=== PATIENT | male | born 1965 | race Caucasian/White ===

== ENCOUNTER → 2018-04-29 16:04 | Outpatient (CLI) | payer MEDICAID, SELFPAY | PROVIDERS: Family Provider Family Medicine; PCP Family Medicine; Referring Provider Otolaryngology Otolaryngology/Facial Plastic Surgery; Visit Provider Otolaryngology Otolaryngology/Facial Plastic Surgery | DX: J02.9 Acute pharyngitis, unspecified (principal) | CPT/HCPCS: 87070; 87077 ==

== ENCOUNTER → 2018-12-09 11:05 | Outpatient (CLI) | payer MEDICAID, SELFPAY ==
[2018-12-09 09:49] VITALS: BMI 27.6
[2018-12-09 11:36] LABS: Prothrombin Time (Protime)PT. 13.1 SECONDS (11.7-14.9)
[2018-12-09 11:37] LABS: Hematocrit 48.3 % (40-54); Hemoglobin 16.4 g/dl (13.0-16.5); Mean Corpuscular Hgb 30.5 pg (27.0-32.0); Mean Corpuscular Volume 89.8 fL (80-94); Mean Platelet Vol. 11.4 fl (6.2-12.0); Partial Thromboplast Time 29.3 Seconds (24.1-36.2); Platelet Count 198 K/mm3 (150-450); RBC Distribution Width CV 13.4 % (11.6-14.6); RBC Distribution Width SD 43.9 fl (35.1-43.9); Red Blood Count 5.38 M/mm3 (4.6-6.2); White Blood Count 8.4 K/mm3 (4.4-11.0)
[2018-12-09 11:40] LABS: Scan Indicated on CBC? Y/N NO
[2018-12-09 11:58] LABS: AST(SGOT) 23 U/L (15-37); Alanine Aminotransfer ALT/SGPT 30 U/L (16-61); Alkaline Phosphatase 91 U/L (45-117); Anion Gap 9 (5-15); BUN 14 mg/dL (7-18); BUN/Creat Ratio 13.9 RATIO (10-20); Bilirubin, Direct 0.08 mg/dL (0.00-0.30); Calcium,Total 9.2 mg/dL (8.5-10.1); Chloride 103 mmol/L (98-107); Cholesterol 149 mg/dL (200); Creatinine, Serum 1.01 mg/dL (0.70-1.30); EST Glomerular Filtration Rate 82 mL/min (>60); Est Glom Filt Rate - Afr Amer 99 mL/min (>60); Globulin 4.2 g/dL (2.2-4.2); Glucose 99 mg/dL (74-106); High Density Lipoprotein 34 mg/dL; Potassium 3.9 mmol/L (3.5-5.1); Protein, Total 8.2 g/dL (6.4-8.2); Sodium Level 138 mmol/L (136-145); Triglycerides 167 mg/dL; Very Low Density Lipoprotein 33 mg/dL (5-40)
== END ==
PROVIDERS: Family Provider Physician Assistant; PCP Physician Assistant; Referring Provider Internal Medicine Cardiovascular Disease; Visit Provider Internal Medicine Cardiovascular Disease
DX: R07.9 Chest pain, unspecified (principal); R94.39 Abnormal result of other cardiovascular function study; E78.5 Hyperlipidemia, unspecified; E78.1 Pure hyperglyceridemia
CPT/HCPCS: 36415; 80048; 80061; 80076; 85027; 85610; 85730

== ENCOUNTER → 2018-12-10 | Outpatient (CLI) | payer MEDICAID, SELFPAY ==
[2018-12-09 09:49] VITALS: BMI 27.6
--- NOTE | 2018-12-10 11:00 | ECHOCS_ITS ---
Reason For Study: CHEST PAIN Procedure This was a 2D Doppler, Color Flow transthoracic echocardiogram. The study was technically difficult. Contrast injection was performed. Exam performed in department. Left Ventricle Mildly dilated left ventricle. The estimated ejection fraction is 65 %. Stage 1 diastolic dysfunction. No regional wall motion abnormalities noted. Right Ventricle Mildly dilated right ventricle. Normal systolic function. Atria Normal left atrium. Normal right atrium. Normal atrial septum. Mitral Valve The mitral valve is structurally normal. No prolapse or stenosis seen. Tricuspid Valve Normal tricuspid valve. Trivial tricuspid valve insufficiency. Right ventricular systolic pressure estimated to be 29 mmHg. Aortic Valve Normal aortic valve. Trisinus/trileaflet aortic valve. Pulmonic Valve Normal pulmonic valve. Great Vessels Normal aortic root. Normal arch. Normal inferior vena cava. Inferior vena cava collapse with sniff. Pericardium/Pleural No pericardial effusion. Medication 22 gauge I.V. with prn adaptor inserted into right arm. Diluted definity 2.0ml given slow IV push to enhance endocardial definition. MMode/2D Measurements & Calculations LVIDd: 5.0 cm IVSd: 0.82 cm Ao root diam: 3.1 cm LVIDs: 3.5 cm LVPWd: 1.0 cm RVDd: 4.0 cm FS: 31.2 % LAV(MOD-bp): 48.7 ml LA A4 area: 16.8 cm2 LA dimension(2D): 2.9 cm LAV(MOD-bp) Indexed: 20.8 ml/m2 LAV(MOD-sp2): 48.5 ml LAV(MOD-sp4): 47.1 ml RA A4 area: 15.8 cm2 Time Measurements MV dec time: 0.17 sec Doppler Measurements & Calculations MV E max jovanny: 53.3 cm/sec Lat Peak E' Jovanny: 11.2 cm/sec Med Peak E' Jovanny: 9.4 cm/sec MV A max jovanny: 59.3 cm/sec E/E' lat: 4.8 E/E' med: 5.7 MV E/A: 0.90 Ao V2 max: 112.9 cm/sec LV V1 max: 94.5 cm/sec PA V2 max: 86.8 cm/sec Ao max P.1 mmHg LV V1 max P.6 mmHg TR max jovanny: 245.4 cm/sec TR max P.1 mmHg Interpretation Summary Mildly dilated left ventricle. The estimated ejection fraction is 65 %. Stage 1 diastolic dysfunction. Mildly dilated right ventricle. Trivial tricuspid valve insufficiency. Right ventricular systolic pressure estimated to be 29 mmHg. The study was technically limited. Contrast injection was performed. There is no comparison study available. Ordering Physician: Slim Elias Referring Physician: Ashu Pastrana Performed By: Hannah Gates, RDCS, RVT
== END | disposition home or self-care (01) ==
LOC: CVS 10:24
PROVIDERS: Family Provider Physician Assistant; PCP Physician Assistant; Referring Provider Internal Medicine Cardiovascular Disease; Visit Provider Internal Medicine Cardiovascular Disease
DX: R07.9 Chest pain, unspecified (principal); R94.39 Abnormal result of other cardiovascular function study
CPT/HCPCS: 93306; Q9957; A4216; C8929

== ENCOUNTER 2018-12-17 07:43 | Day surgery (SDC) | payer MEDICAID, SELFPAY ==
[2018-12-09 09:49] VITALS: BMI 27.6
--- NOTE | 2018-12-09 10:24 | HP_ITS ---
HPI HPI History of Present Illness Surgical H&P: Yes Details: Mr. Ibarra is a very pleasant 53-year-old current smoker approximately [id number] smoking history, drinks about 6 cans of beer per week, nondiabetic, no previous known history of coronary artery disease who apparently noted new onset substernal chest pain, and underwent a treadmill/EKG at the [facility] on 12/02/2018. Apparently the patient went 7 METS, had an excessive heart rate response to exercise, had poor exercise tolerance and had atypical chest discomfort and frequent PACs. He apparently has never had a heart catheterization. In addition he has significant dizziness and lightheadedness at the end of his treadmill test. His most recent lipids dated 11/05/2018 showed triglycerides of 337, HDL 28 and LDL of 95. He is currently on Lipitor. He also has a family history of early coronary artery disease and that his brother suddenly in his sleep, myocardial infarction at age 31. On further history the patient states that approximately 1 month ago he developed chest tightness and pressure with associated palpitations, short and dyspnea on exertion. He had no associated nausea or vomiting. On some occasions, his chest pain actually improved with ambulation. He is not on baby aspirin. In addition the patient complains of excessive snoring, wakes himself up with his own snoring, wakes up tired on a daily basis, and his daytime somnolence during the day. In our office today's blood pressure was 102/60, pulse is 72 and regular. Physical exam demonstrates clear lungs bilaterally, regular rate and rhythm,. EKG dated 12/02/2018 shows normal sinus rhythm with PACs, normal axis, normal intervals, no evidence of previous myocardial infarction. Lipids are as above. Intake Vital Signs 12/09/18 Height 6 ft 4 in 12/09/18 Weight: 227 lb 12/09/18 Body Mass Index (BMI) 27.6 12/09/18 Blood Pressure 102/60 12/09/18 Blood Pressure Location Lt brachial 12/09/18 Blood Pressure Position Sitting 12/09/18 Respiratory Rate 20 H 12/09/18 Pulse Rate 72 12/09/18 Pulse Source Auscultation Intake Visit Reasons: ABN STRESS TEST (CHIDI PASTRANA) Overedger Required: No Accompanied by: Is patient in pain?: No Allergies No Known Allergies Allergy (Verified 03/24/17 16:29) Medications Azelastine HCl [Astelin] 1 spray NASAL BID 03/24/17 [History Confirmed 12/09/18] albuterol sulfate 90 mcg/actuation breath activated powder inhaler 2 inh INHALATION Q6H PRN ea 12/08/18 [History Confirmed 12/09/18] atorvastatin 10 mg tablet 10 mg PO QHS tab 12/08/18 [History Confirmed 12/09/18] guaifenesin ER 600 mg tablet, extended release 12 hr 600 mg PO Q12H PRN 12/08/18 [History Confirmed 12/09/18] ipratropium bromide 0.03 % nasal spray 2 spray INTRANASAL BID 12/08/18 [History Confirmed 12/09/18] mometasone-formoterol HFA 100 mcg-5 mcg/actuation aerosol inhaler 2 puff INHALATION BID 12/08/18 [History Confirmed 12/09/18] montelukast 10 mg tablet 10 mg PO QPM 12/08/18 [History Confirmed 12/09/18] sodium chloride 0.65 % nasal spray aerosol 2 spray INTRANASAL Q2H PRN 12/08/18 [History Confirmed 12/09/18] triamcinolone acetonide 55 mcg nasal spray aerosol 2 spray INTRANASAL DAILY 12/08/18 [History Confirmed 12/09/18] aspirin 81 mg tablet,delayed release 81 mg PO DAILY #30 tab 12/09/18 [Rx Confirmed 12/09/18] clopidogrel 75 mg tablet 75 mg PO DAILY #30 tab 12/09/18 [Rx Confirmed 12/09/18] metoprolol tartrate 25 mg tablet 12.5 mg PO BID #30 tab 12/09/18 [Rx Confirmed 12/09/18] FOR[facility]LY [facility] Medical History Abnormal stress electrocardiogram test (Acute) Hypertriglyceridemia (Acute) Hyperlipidemia (Chronic) Chronic sinusitis (Chronic) Snoring (Chronic) Chest pain (Acute) Allergic rhinitis (Chronic) Bilateral inguinal hernia (Chronic) History of wisdom tooth extraction (Chronic) Surgical History History of appendectomy (Chronic) History of hernia repair (Chronic) Family History Mother Alzheimers disease Daughter Autism ADHD Developmental disability Social History Smoking Status: Current every day smoker tobacco type: cigarettes ROS Const Const: Positive for other (Referred by Chidi Pastrana, abn stress test); negative for fatigue, weakness, body ache, fever(s), headache(s), chills, frequent falls, night sweats, daytime sleepiness, difficulty sleeping, excessive sweating, weight gain, weight loss, increased appetite, poor appetite or anorexia Eyes Eyes: Negative for blind spots, loss of peripheral vision, transient loss of vision, blurry vision, change in vision, double vision, floaters, tunnel vision or other ENT ENT: Negative for headache(s), dizziness, hearing loss, tinnitus, Nosebleed/epistaxis, balance problems, post nasal drip, lip swelling, tongue swelling, bleeding gums, hoarseness, neck pain, dry mouth or other Cardio Chest Pain: Yes (Some tightness, this am and once yesterday) Frequency: other (several times a week) Character: tightness Onset: at rest Location: mid sternal Duration: minutes (4 or 5 minutes) Exacerbation: other (stress) Relieving: rest Recurrence: other (spontaneously) Palpitations: Yes (Yesterday felt heart racing for 5 minutes or so) feels like its: fast Edema: None Muscle aches with walking: None Resp Respiratory: Positive for SOB with activity (has chronic rhinitis, productive yellow sputum) and Cough; negative for SOB at rest, SOB orthopnea\SOB lying down, Coughing up blood/hemoptysis, chest congestion, pain on inspiration, snoring, stridor, wheezing, crackles, paroxysmal nocturnal dyspnea or other GI GI: Negative nausea, vomiting, heartburn, constipation, belching, bloating, cramping, vomiting blood/hematemesis, bright, red blood in stools, black,tarry stools, loose stools, Difficulty Swallowing or other : Negative for hematuria, frequent nighttime urination/ nocturia, erectile dysfunction or abnormal vaginal bleeding Musc Musc: Negative for muscle aches/ myalgia, muscle weakness, joint pain or balance problems Skin Skin: Negative redness, non-healing lesions, rash, unusual bruising, skin ulcer, wounds, jaundice or other Neuro Neuro: Negative for dizziness, lightheadedness, near syncope, syncope, orthostatic symptoms, frequent falls, headache(s), weakness, confusion, memory loss, restless legs, blurry vision, double vision, vertigo, seizures, lack of coordination or other Phillip Hematologic/Lymphatic: Negative for easy bleeding, easy bruising, enlarged lymph nodes or other Endo Endo: Negative for fatigue, cold intolerance, heat intolerance, excessive sweating, flushing, increased thirst/drinking, increased hunger, hair loss, hair growth or other Psych Psych: Negative for anxiety, depression, thoughts of harming anyone, thoughts of harming yourself, visual hallucinations, panic attacks or audible hallucinations Allergy Allergy/Immunology: Negative for throat swelling, Negative for tongue swelling, Negative for hives, Negative for rash, Negative for lip swelling Cardiology Exam Const Appearance: cooperative, healthy appearing and no acute distress Nutritional Appearance: well nourished Orientation: alert, oriented x3 and oriented to person Head Head: normal to inspection, normocephalic and atraumatic Nose: external nose normal Face and Sinus: face symmetric Mouth: oral mucosae normal Eyes General: appearance normal, both eyes and all related structures Eyelids: eyelids normal Conjunctivae: conjunctivae normal Pupils: PERRL and normal by confrontation EOM: EOM intact bilaterally Neck Neck: normal visual inspection and full ROM Carotids: normal carotid upstroke Chest Chest inspection: normal inspection of the chest Auscultation: Bilateral: Clear to Auscultation Cardio Palpation: normal PMI Rate: regular rate Rhythm: regular rhythm Heart sounds: S1 normal and S2 normal GI GI: normal to inspection, no hepatosplenomegaly and bowel sounds present Neuro General: alert, awake, oriented x3, CN's II-XI intact bilaterally and moves all extremities Skin Skin: no rashes or lesions noted Extremities Pulses: Normal: Right Femoral Pulse, Left Femoral Pulse, Right Dorsalis Pedis Pulse, Left Dorsalis Pedis Pulse, Right Posterior Tibial Pulse, Left Posterior Tibial Pulse, Right Radial Pulse, Left Radial Pulse Lower Extremity Edema: None: Bilateral Psych Psychological: normal affect Assessment & Plan 1. Abnormal stress electrocardiogram test R94.39 Plan 1. Abnormal stress test: The patient has had chest pain on and off for the past month or so, is a longtime smoker, and as significant important family history of his younger brother who of a myocardial infarction in his sleep at age 31. I am concerned that although the patient's chest pain has both typical and atypical features, he had an abnormal stress test with exertional chest pain, and poor exercise capacity for age. I recommended that the patient undergo a left heart catheterization to confirm/deny the presence of significant coronary occlusive disease. If he has no significant disease, he will then be referred for exercise therapy and weight loss therapy. In anticipation of his catheterization, I have explained the risks/benefits of the procedure with him specific attention to lack of on-site surgical back-up, and the patient is agreed to proceed. In addition we will start him on baby aspirin 81 mg p.o. daily, Plavix, 75 mg a day, and Lopressor 12.5 mg p.o. twice daily for heart rate control. I strongly encouraged the patient discontinue all alcohol and tobacco products to assist with his overall cardiovascular health. In addition I recommended he undergo a 2D echo with Doppler to evaluate his LV function, pulmonary pressures, and valvular status. Orders Orders: Echo Complete Today Left Heart Cath 12/17/18 Basic Metabolic Profile (BMP) Today Partial Thromboplast Time Today Prothrombin Time w/INR Today CBC-Complete Blood Cnt No Diff Today Chest PA and Lateral Today Echo Complete Today 2. Excessive daytime sleepiness G47.19 Plan 2. Excessive daytime somnolence: The patient has signs and symptoms of possible undiagnosed obstructive sleep apnea. I recommended he undergo a sleep study to evaluate this. If this is abnormal, he will be referred to Dr. Dueñas or Dr. Redman for CPAP or BiPAP management. 3. Hypertriglyceridemia: The patient has evidence of hyperglyceridemia and low HDL which may be a complication of ongoing tobacco use and ongoing alcohol use with beer. We will continue Lipitor therapy and repeat his lipid profile in 6 weeks time. 4. Return office in 6 months. This note was generated using a voice recognition system and there may be incorrect words, spelling or punctuation that were not noted when reviewing the office note prior to saving. Orders Orders: Polysomnography Today 3. Hyperlipidemia E78.5 Orders Orders: Lipid Profile Today Liver Profile Today Plan Detail Other Orders Orders: Echo Complete Today R07.9 Left Heart Cath 12/17/18 R07.9 Basic Metabolic Profile (BMP) Today R07.9 Lipid Profile Today E78.1 Partial Thromboplast Time Today R07.9 Prothrombin Time w/INR Today R07.9 CBC-Complete Blood Cnt No Diff Today R07.9 Liver Profile Today E78.1 Chest PA and Lateral Today R07.9 Polysomnography Today R06.83 Other Medications New: albuterol sulfate 90 mcg/actuation 2 inhalations inhalation Q6H PRN ipratropium bromide 2 sprays intranasal BID montelukast (Singulair) 10 mg PO QPM triamcinolone acetonide (Nasacort) 2 sprays intranasal DAILY guaifenesin ER (Mucinex) 600 mg PO Q12H PRN mometasone-formoterol 100-5 mcg/actuation (Dulera) 2 puffs inhalation BID sodium chloride 0.65% (Saline Nasal Mist) 2 sprays intranasal Q2H PRN aspirin (Adult Aspirin Regimen) 81 mg PO DAILY 30 tabs 11RF clopidogrel (Plavix) 75 mg PO DAILY 30 tabs 3RF metoprolol tartrate 12.5 mg (1/2 x 25 mg) PO BID 30 tabs 11RF Follow Up +6M (Curt) Coding Level of Care Code Off vis,new,level 4 Diagnoses Abnormal stress electrocardiogram test R94.39 Excessive daytime sleepiness G47.19 Hyperlipidemia E78.5 Coding Level of Care Code Off vis,new,level 4 Diagnoses Abnormal stress electrocardiogram test R94.39 Excessive daytime sleepiness G47.19 Hyperlipidemia E78.5 12/09/18 1024 <Electronically signed by Slim Elias MD> Date Slim Elias MD
--- NOTE | 2018-12-09 10:53 | RAD_ITS ---
STUDY: X-RAY CHEST REASON FOR EXAM: Male, 53 years old. Chest pain TECHNIQUE: PA and lateral views of the chest. COMPARISON: None. FINDINGS: The lungs are clear and expanded. There is no demonstrated pleural abnormality. Normal size heart. Normal mediastinum and sloan. Normal visualized pulmonary arteries. Normal visualized aortic arch and descending thoracic aorta. Normal visualized thoracic spine. Normal visualized ribs, clavicles, and shoulders. There is no demonstrated abnormality of the visualized soft tissue structures of the upper abdomen. RAD/Chest PA and Lateral IMPRESSION: Normal x-ray examination of the chest. Electronically Signed: Nate Lee DO at 12:45 EDT Tel , Service support ,
--- NOTE | 2018-12-17 10:29 | CL.D_ITS ---
Patient Name: ALEXIS TEJADA Study Date: 12/17/2018 Performing: Slim Elias MD Ht: 75.98 inches 193 cm : 1965 Wt: 229.28 lbs 104 kg Age: 53 Gender: male BSA: 2.35 PROCEDURE(S) PERFORMED CI93-JBX/COR/LV CLINICAL PROFILE AND INDICATIONS Indications: New Onset Angina <= 2 months, Suspected CAD Heart Failure: None Stress/Imaging Date: 12/02/2018 Angina Classification Anginal Classification w/in 2 Weeks: CCS III Comorbidities/Risk Factors: Current/Recent Smoker (< 1year) Hypertension Dyslipidemia CONCLUSIONS Non obstructive coronary arteries Normal LV size, wall motion,and systolic function RECOMMENDATIONS Management as per referring [employer] Attendant D/c plavix, cont baby asa. D/c tobacco. DESCRIPTION OF PROCEDURE The patient arrived to the procedure lab. The risks and benefits of the procedure as well as a full d escription of our services here and current unavailability of surgical backup were fully explained to the patient and/or their significant other prior to the catheterization. The Timeout was completed, verifying the correct patient and procedure. The patient's procedural site was prepped and draped in the usual fashion. Local anesthetic was given subcutaneously to right groin region with Lidocaine 2%. Using a modified Seldinger technique, arterial access was obtained via the right femoral artery, a 4 Fr sheath was inserted Left Coronary Artery selective angiography was performed in multiple views us ing a 4 Fr. JL5 catheter. Right Coronary Artery selective angiography was then performed in multiple views using a 4 Fr. 3DRC catheter. Left Ventriculography was performed in KERN projection using a 4 Fr . Pigtail catheter. LV to AO pullback pressures were then recorded.The arterial sheath was pulled and manual compression applied until hemostasis is achieved. CORONARY ANGIOGRAPHY DOMINANCE: Right Dominant LEFT HEART ASSESSMENT Left Ventricular Ejection Fraction: by LV Gram 65 % Normal LV wall motion Normal Left Ventricular systolic function LEFT MAIN: Angiographically normal LEFT ANTERIOR DESCENDING ARTERY: Mild luminal irregularities less than 30% CIRCUMFLEX ARTERY: Angiographically normal RIGHT CORONARY ARTERY: Angiographically normal COMPLICATIONS No Complications PROCEDURE MEDICATIONS Oxygen: 2 L/min via nasal cannula IV Bolus: .9 NaCl 200 ml total 12/17/2018 10:24:22 SUMMARY OF HEMODYNAMIC DATA Time AIR REST ECG 08:33:50 ECG 09:45:33 AO 97/65 (80) SA 10:14:17 LV 108/-16, 16 10:19:06 LV 110/-13, 15 10:19:13 LVp 110/-16, 11 10:19:17 AOp 114/65 (86) 10:19:22 Signed By Slim Elias MD On 12/17/2018 10:28:19 Slim Elias MD
== END 2018-12-17 14:45 | disposition home or self-care (01) ==
LOC: CLSP 07:44
PROVIDERS: Family Provider Physician Assistant; PCP Physician Assistant; Referring Provider Internal Medicine Cardiovascular Disease; Visit Provider Internal Medicine Cardiovascular Disease
DX: I20.9 Angina pectoris, unspecified (principal); R94.39 Abnormal result of other cardiovascular function study; G47.10 Hypersomnia, unspecified; E78.1 Pure hyperglyceridemia; Z79.899 Other long term (current) drug therapy; Z79.82 Long term (current) use of aspirin; J30.9 Allergic rhinitis, unspecified; J32.9 Chronic sinusitis, unspecified; E78.5 Hyperlipidemia, unspecified; F17.210 Nicotine dependence, cigarettes, uncomplicated
CPT/HCPCS: 71046; 93458; J7040; C1769; C1894; Q9967

== ENCOUNTER 2020-04-03 09:13 | Emergency (ER) | payer MEDICAID, SELFPAY ==
[2020-01-07 10:41] VITALS: BMI 28.3
[2020-04-03 09:14] VITALS: BP 145/66; PULSE 116; RESP 18; TEMP 36.6; BMI 28.8
--- NOTE | 2020-04-03 09:38 | ED.VISSUMM ---
- ER Visit Summary Date of Service: 04/03/20 Chief Complaint: Sinus infection History of Present Illness: The patient is a 55 M who presents with a sinus infection that is been constant for the past 4 months. Patient states he was on a course of Augmentin for 20 days but finished that 3 months ago. Patient states he has been taking prednisone for the past 4 days. Patient states he had some of this leftover and started taking it on his own. Patient states this has not helped. Patient states he woke up today and was having persistent rhinorrhea with a cough. Patient also admits to some nausea and diarrhea today. Patient denies any fevers or chills. Patient does admit to a sore throat. Physical Examination: Vital signs are stable except for mild tachycardia of 116. Patient is afebrile. Patient is in no acute distress. Nasal mucosa is congested, worse on the left. Oral mucosa is pink and moist. Oropharynx is clear. Neck is supple. Trachea is midline. There is no JVD or lymphadenopathy. There is tenderness over the frontal and maxillary sinuses bilaterally. Heart was regular rate and rhythm. Lungs are clear and equal bilaterally. Abdomen is soft and nontender. Cranial nerves II through XII are intact. There are no focal motor or sensory deficits. Emergency Department Course and Treatment: Patient was given a dose of doxycycline here. Patient was given prescriptions for doxycycline and Flonase. Patient was instructed to stop using the prednisone. Patient was instructed to follow-up with his primary care physician in 5 to 7 days. Patient was also advised he may need to see an ear nose and throat physician. Patient understood and was agreeable with the plan. All questions were answered. Disposition: Discharge home Impression: Acute sinusitis This note was generated with [employer] dictation software. It may contain incorrect words, spelling, and punctuation that were not noted in review of the chart prior to signing ED Disposition - Plan for ED Patient: Disposition: Home or Assisted Living Diagnosis: Acute sinusitis Instructions: ED Sinusitis Antibiotic Treatment Prescriptions: Doxycycline 100 mg PO BID #20 cap Prescription Printed Fluticasone 0.05% [Flonase Nasal Swiss] 1 spray NASAL DAILY #1 nasal.sry Prescription Printed Referrals: Niraj Pastrana PA [Primary Care Provider] - 5-7 Days
[2020-04-03] MEDS: Doxycycline 100 MG CAPSULE PO (09:43)
== END 2020-04-03 10:18 | disposition home or self-care (01) ==
PROVIDERS: Emergency Provider Emergency Medicine; PCP Physician Assistant
DX: J01.10 Acute frontal sinusitis, unspecified (principal); J01.00 Acute maxillary sinusitis, unspecified; Z72.0 Tobacco use
CPT/HCPCS: 99283

== ENCOUNTER → 2024-06-24 | Outpatient (CLI) | payer MEDICAID, SELFPAY ==
[2024-06-24 15:36] LABS: Absolute Lymphocyte Count 2.02 X10^3/uL (0.83-4.51); Absolute Neutrophil Count 5.7 X10^3/uL (2.0-7.7); Basophil# 0.06 X10^3/uL; Basophil% 0.7 % (0-1); Eosinophil# 0.19 X10^3/uL; Eosinophils% 2.2 % (0-5); Hematocrit 48.5 % (40-54); Hemoglobin 15.8 g/dL (13.0-16.5); Lymphocyte # 2.02 X10^3/ul (0.83-4.51); Lymphocyte % 23.5 % (19-41); Mean Corp Hgb Conc 32.6 g/dL (32-36); Mean Corpuscular Hgb 30.4 pg (27.0-32.0); Mean Corpuscular Volume 93.3 fL (80-94); Mean Platelet Vol. 11.6 fl (6.2-12.0); Monocyte# 0.56 X10^3/uL; Monocyte% 6.5 % (0-10); NRBC Flagged by Analyzer 0 % (0-5); Neutrophil # 5.72 X10^3/uL (2.7-7.7); Neutrophil % 66.8 % (47-70); Platelet Count 236 K/mm3 (150-450); RBC Distribution Width CV 12.9 % (11.6-14.6); RBC Distribution Width SD 44.1 fl (35.1-43.9); White Blood Count 8.6 K/mm3 (4.4-11.0)
[2024-06-24 16:19] LABS: ALB/GLOB Ratio 0.9 RATIO (0.9-2.4); AST(SGOT) 16 U/L (15-37); Alanine Aminotransfer ALT/SGPT 24 U/L (16-61); Albumin, Serum 3.7 g/dL (3.2-5.0); Alkaline Phosphatase 92 U/L (45-117); Anion Gap 6 (5-15); BUN 13 mg/dL (7-18); BUN/Creat Ratio 14.4 RATIO (10-20); Calcium,Total 9.1 mg/dL (8.5-10.1); Chloride 107 mmol/L (98-107); Cholesterol 194 mg/dL (200); EST Glomerular Filtration Rate 91 mL/min (>60); Est Glom Filt Rate - Afr Amer 111 mL/min (>60); Globulin 4.2 g/dL (2.2-4.2); Glucose 260 mg/dL (74-106); High Density Lipoprotein 35 mg/dL; Potassium 3.9 mmol/L (3.5-5.1); Protein, Total 7.9 g/dL (6.4-8.2); Sodium Level 136 mmol/L (136-145); Triglycerides 364 mg/dL; Very Low Density Lipoprotein 73 mg/dL (5-40)
== END | disposition home or self-care (01) ==
LOC: BIMLAB 14:06
PROVIDERS: PCP Internal Medicine; Referring Provider Internal Medicine; Visit Provider Internal Medicine
DX: I10 Essential (primary) hypertension (principal); E78.5 Hyperlipidemia, unspecified; R73.9 Hyperglycemia, unspecified
CPT/HCPCS: 36415; 80053; 80061; 83036; 85025

== ENCOUNTER → 2024-07-24 | Day surgery (SDC) | payer MEDICAID, SELFPAY ==
[2024-07-24 07:56] VITALS: BP 125/78; PULSE 90; RESP 15; TEMP 36.3; O2SAT 99
[2024-07-24] MEDS: Lidocaine Jelly 2% 20 ML Syringe (URO-JET) 1 APPLIC (07:58)
== END | disposition home or self-care (01) ==
LOC: EN 07:38
PROVIDERS: PCP Internal Medicine; Referring Provider Internal Medicine; Visit Provider Internal Medicine Gastroenterology
PROC: F00ZJWZ Instrumental Swallowing and Oral Function Assessment using Swallowing Equipment (ICD-10-PCS; CPT 43235; principal; 2024-07-24 07:55)
DX: R13.10 Dysphagia, unspecified (principal); K44.9 Diaphragmatic hernia without obstruction or gangrene
CPT/HCPCS: 91010

== ENCOUNTER → 2024-08-04 | Outpatient (CLI) | payer MEDICAID, SELFPAY ==
--- NOTE | 2024-08-04 09:10 | RAD_ITS ---
STUDY: AIR CONTRAST ESOPHAGRAM AND UPPER GI SERIES REASON FOR EXAM: Male, 59 years old. R13.10 - Dysphagia, unspecified FLUOROSCOPY TIME (if supplied): (1 minute and 16 seconds) minutes/seconds. 52 fluoroscopic images were obtained. TECHNIQUE: SINGLE CONTRAST AND AIR CONTRAST FLUOROSCOPIC IMAGES. COMPARISON: None. FINDINGS: The cervical esophagus demonstrates normal motility without aspiration. There is no stricture or extrinsic mass effect. No intraluminal polypoid mass is identified. The thoracic esophagus distends well without stricture or mucosal fold thickening. No mucosal ulcerations are identified. There is no extrinsic mass effect. There are no diverticula. No hiatal hernia or gastroesophageal reflux was identified. The patient ingested a 12 mm tablet of barium without any difficulty. The stomach distends well without mucosal fold thickening or mucosal ulceration. There is no intraluminal mass. The duodenal bulb is freely distensible without deformity or ulceration. The duodenal sweep is normal in position and caliber. RAD/Upper GI w/BA Swallow IMPRESSION: Normal air-contrast esophagram and upper GI series. Electronically Signed: Fabiano Tubbs MD at 13:06 EST ,
--- NOTE | 2024-08-04 09:25 | RAD_ITS ---
STUDY: X-RAY - RIGHT SHOULDER REASON FOR EXAM: Male, 59 years old. Right shoulder pain. TECHNIQUE: 4 views of the right shoulder. COMPARISON: None. FINDINGS: There is minimal glenohumeral arthrosis. There is minimal acromioclavicular arthrosis. Normal acromion. Normal humeral head and visualized proximal humerus. The soft tissue structures are unremarkable. There is no demonstrated fracture. Normal visualized pulmonary apex. RAD/Shoulder min 2 Views IMPRESSION: Minimal glenohumeral arthrosis and minimal acromioclavicular arthrosis. Electronically Signed: Pedro Lares MD at 16:01 EST ,
== END | disposition home or self-care (01) ==
LOC: RAD 08:47
PROVIDERS: PCP Internal Medicine; Referring Provider Internal Medicine; Visit Provider Internal Medicine
DX: R13.10 Dysphagia, unspecified (principal); M25.511 Pain in right shoulder
CPT/HCPCS: 73030; 74246

== ENCOUNTER 2024-09-22 10:40 | Day surgery (SDC) | payer MEDICAID, SELFPAY ==
--- NOTE | 2024-09-16 16:21 | PAT.ANE_ITS ---
Pre-Assessment Diagnosis/Proposed Procedure Planned Operative Procedure(s): EGD Anesthesia History Anesthesia History - order dispatcher: Anesthesia History - order dispatcher Hx Hospitalization No 09/16/24 12:49 Any Problems With Anesthesia No 09/16/24 12:49 Cholinesterase deficiency No 09/16/24 12:49 You/Your Family Experience No 09/16/24 12:49 fever (hyperthermia) with Relationship Recent Exposure to Contagious Disease Does patient have nerve No 09/16/24 12:49 stimulator Patient instructed to have device shut off --Does patient have Pacemaker or ICD? When Was Last Pacemaker Check QUESTION #4 FULL TEXT: You/Your Family Experience fever (hyperthermia) with Anesthesia Last Oral Intake Last Oral intake: Last Oral Intake NPO since Meds taken in AM with sips of water? Meds patient instructed to take am of surgery PONV PONV - order dispatcher: PONV - order dispatcher Female No 09/16/24 12:49 HX of Motion Sickness No 09/16/24 12:49 HX of N/V After Surgery No 09/16/24 12:49 Non-Smoker No 09/16/24 12:49 Duration of Surgery greater No 09/16/24 12:49 than 60 minutes Number of Risk Factors PONV Score Height & Weight Height & Weight: Anesthesia: Height & Weight Height 6 ft 2 in 07/09/24 11:19 Respiratory Assessment Respiratory Assessment - order dispatcher: Respiratory Tract Infection Hx - order dispatcher Hx Respiratory Tract Infection Yes: NASAL INFECTION 07/202409/16/24 12:49 STOP Sleep Apnea STOP Sleep Apnea - order dispatcher: STOP Sleep Apnea - order dispatcher Hx Hypertension No 09/16/24 12:49 Hx Sleep Apnea No 09/16/24 12:49 CPAP BIPAP Do you snore loudly (louder No 09/16/24 12:49 than talking or can be heard Do you often feel tired/ No 09/16/24 12:49 fatigued/ sleepy during daytime? Has anyone observed you stop No 09/16/24 12:49 breathing during sleep? STOP Results Negative 09/16/24 12:49 QUESTION #5 FULL TEXT : Do you snore loudly (louder than talking or can be heard through closed doors)? Tobacco Use History Tobacco Use History - order dispatcher: Tobacco Use History - order dispatcher Tobacco Use Smoking Status Current every day smoker 09/16/24 12:49 Hx Tobacco Use Yes 09/16/24 12:49 Years Smoking Packs Smoked per Day 2 09/16/24 12:49 Smoking Cessation Date was within the last 15 years Hx Smoking Cessation Date Hx Smoking Cessation Counseling Hematologic Medial History Hematologic Hx - order dispatcher: Hematologic Medical Hx - crown blocker Hx of Blood Transfusion No 09/16/24 12:49 Hx of Transfusion in last 3 No 09/16/24 12:49 Months Date of Last Transfusion (if within last 3 months) Ever experience any problems No 09/16/24 12:49 with transfusion(s)? Specify any problems Hx of Preganancy in last 3 N/A 09/16/24 12:49 Months Nurse Filling Out Transfusion NBUCHER 09/16/24 12:49 & Questions: Date: 09/16/24 09/16/24 12:49 Time: 12:50 09/16/24 12:49 Patient unable to answer at this time (ie. confused, unrespo /Reproduction History /Reproductive History - order dispatcher: /Reproductive Hx- order dispatcher Hx Now No 09/16/24 12:49 Gestational Age (in weeks): EDC: Hx Hx Para Hx Section SAB No 09/16/24 12:49 PFSH Medical History (Updated 09/16/24 @ 12:54 by Emma Anaya) Wears glasses High cholesterol Difficulty swallowing Chronic cough Smoker History of echocardiogram History of stress test Cardiology follow-up encounter Blood glucose elevated Right shoulder pain GERD (gastroesophageal reflux disease) GI problem Diabetes Back problem Asthma Arthritis Seasonal allergies Alcohol abuse Essential hypertension Excessive daytime sleepiness Abnormal stress electrocardiogram test Hypertriglyceridemia Hyperlipidemia Chronic sinusitis Snoring Bilateral inguinal hernia Allergic rhinitis Chest pain Home Medications ?Medication ?Instructions ?Recorded ?Last Taken ?Type azelastine 137 mcg (0.1 %) nasal 1 spray intranasal BI D 06/24/24 Unknown History spray fluticasone furoate 50 1 inh inhalation Q24H Unknown History mcg/actuation blister powder for inhalation guaifenesin 600 mg tablet, 600 mg PO Q12H PRN congesti on 06/24/24 Unknown History extended release 12 hr (Mucinex) lansoprazole 30 mg capsule,delayed 30 mg PO .COMPLEX # 90 caps 07/09/24 Unknown Rx release empagliflozin 10 mg tablet 10 mg PO DAILY 09/16/24 Unk nown History (Jardiance) rosuvastatin 5 mg tablet 5 mg PO QHS 09/16/24 Unknown History Allergy/AdvReac Type Severity Reaction Status Date / Time No Known Allergies Allergy Verified 09/16/24 12:47 Family History Mother Alzheimers disease Daughter Autism ADHD Developmental disability Surgical History (Updated 09/16/24 @ 12:54 by Emma Anaya) History of cardiac catheterization History of left heart catheterization (12/17/18) History of wisdom tooth extraction History of hernia repair History of appendectomy Social History household members: spouse housing: house current occupational status: unemployed Smoking Status: Current every day smoker tobacco type: cigarettes alcohol intake: current alcohol intake frequency: a few times a week Alcohol type: beer substance use type: marijuana what type of physical activity do you participate in: walking frequency: daily seatbelt use: always do you feel safe at home: Yes Audit: Pertinent Findings Pertinent Findings Stress test pertinent findings: December 02, 2018. Treadmill stress test. Patient went 7 METS. Had excessive heart rate response to exercise. Poor exercise tolerance. Atypical chest pain. And frequent PACs. Echo (EF%) pertinent findings: December 10, 2018. Ejection fraction 65%. Right ventricular systolic pressure is 29 mmHg. No aortic stenosis noted. Heart catheterization pertinent findings: December 17, 2018. Nonobstructive coronary arteries. Normal LV size wall motion and systolic function. Consult pertinent findings: July 02, 2019. Dr. Elias. 1. Patient had abnormal stress test December 02, 2018. Followed up with a heart catheterization in December 17 which showed nonobstructive coronary arteries and normal LV function. 2. Patient also has complaints of fatigue and daily somnolence. Patient states he has a excessive snoring. Never completed his sleep study. Patient forgets to take his metoprolol. Patient continues to smoke. Patient will need to complete sleep study sometime in the future and likely start CPAP. Stop smoking. Recommendation Anesthesia Recommendation Anesthesia recommendation: OPTIMIZED for anesthesia
[2024-09-22] VITALS (8 sets, daily range): BP systolic 101–138; BP diastolic 74–100; PULSE 81–92; RESP 16–18; TEMP 36.3–36.7; O2SAT 93–98; BMI 28.0
--- NOTE | 2024-09-22 11:26 | PRE.ANES_ITS ---
ASA Classification* ASA Classification ASA Classification: 3 Assessment & Plan Anesthesia* Anesthesia Assessment Anesthesia Assessment: Discussed sedation and/or anesthesia options, risks, benefits, and alternatives with patient/parents/legal guardian/POA. Questions invited. The patient/parents/legal guardian/POA seems to understand and agrees to proceed with anesthesia plan. Reviewed the physical assessment, medical history, allergy history and patient home medications list prior to surgery/procedure/anesthetic and documented any changes. Performed airway and anesthesia risk assessments. Anesthesia Type Anesthesia Type: MAC History Source History Obtained from:: Patient and Chart Anesthesia Focused Assessment* Temperature: 98.1 F Pulse Rate: 87 Blood Pressure: 138/100 Respiratory Rate: 16 Pulse Ox: 98 Oxygen Delivery Method: Room Air Airway Assessment Mouth opens: 2 cm Mallampati Score: IV Teeth Condition: Chipped/Broken (Patient has multiple chipped teeth.) and Missing (Patient has several missing teeth. Rest are tight.) Neck Range of motion (ROM): Full ROM Focused Labs Anesthesia Preop lab: CBC WBC 8.6 K/mm3 (4.4-11.0) 06/24/24 14:06 06/24/24 RBC 5.20 M/mm3 (4.6-6.2) 06/24/24 14:06 06/24/24 Hgb 15.8 g/dL (13.0-16.5) 06/24/24 14:06 06/24/24 Hct 48.5 % (40-54) 06/24/24 14:06 06/24/24 Plt Count 236 K/mm3 (150-450) 06/24/24 14:06 06/24/24 CHEMISTRY Potassium 3.9 mmol/L (3.5-5.1) 06/24/24 14:06 06/24/24 Sodium 136 mmol/L (136-145) 06/24/24 14:06 06/24/24 Magnesium 1.8 mg/dL (1.8-2.4) 12/04/15 16:28 12/04/15 BUN 13 mg/dL (7-18) 06/24/24 14:06 06/24/24 Creatinine 0.90 mg/dL (0.70-1.30) 06/24/24 14:06 06/24/24 Glucose 260 mg/dL (74-106) H 06/24/24 14:06 06/24/24 COAG PT 13.1 SECONDS (11.7-14.9) 12/09/18 11:12 Pre-Assessment Diagnosis/Proposed Procedure Planned Operative Procedure(s): EGD Anesthesia History Anesthesia History - health physicist: Anesthesia History - health physicist Hx Hospitalization No 09/16/24 12:49 Any Problems With Anesthesia No 09/16/24 12:49 Cholinesterase deficiency No 09/16/24 12:49 You/Your Family Experience No 09/16/24 12:49 fever (hyperthermia) with Relationship Recent Exposure to Contagious No 09/22/24 11:00 Disease Does patient have nerve No 09/16/24 12:49 stimulator Patient instructed to have device shut off --Does patient have Pacemaker No 09/22/24 11:00 or ICD? When Was Last Pacemaker Check QUESTION #4 FULL TEXT: You/Your Family Experience fever (hyperthermia) with Anesthesia Last Oral Intake Last Oral intake: Last Oral Intake NPO since 10:00 09/22/24 11:00 Meds taken in AM with sips of No 09/22/24 11:00 water? Meds patient instructed to take am of surgery Any additional information?: Yes NPO since: 10:00 (Patient had coffee this morning. Last was before 10:00.) PONV PONV - health physicist: PONV - health physicist Female No 09/16/24 12:49 HX of Motion Sickness No 09/16/24 12:49 HX of N/V After Surgery No 09/16/24 12:49 Non-Smoker No 09/16/24 12:49 Duration of Surgery greater No 09/16/24 12:49 than 60 minutes Number of Risk Factors PONV Score Height & Weight Height & Weight: Anesthesia: Height & Weight Height 6 ft 2 in 09/22/24 11:00 Weight: 99 kg 09/22/24 11:00 Body Mass Index (BMI) 28.0 09/22/24 11:00 Respiratory Assessment Respiratory Assessment - health physicist: Respiratory Tract Infection Hx - health physicist Hx Respiratory Tract Infection Yes: NASAL INFECTION 07/202409/16/24 12:49 STOP Sleep Apnea STOP Sleep Apnea - health physicist: STOP Sleep Apnea - health physicist Hx Hypertension No 09/16/24 12:49 Hx Sleep Apnea No 09/16/24 12:49 CPAP BIPAP Do you snore loudly (louder No 09/16/24 12:49 than talking or can be heard Do you often feel tired/ No 09/16/24 12:49 fatigued/ sleepy during daytime? Has anyone observed you stop No 09/16/24 12:49 breathing during sleep? STOP Results Negative 09/16/24 12:49 QUESTION #5 FULL TEXT : Do you snore loudly (louder than talking or can be heard through closed doors)? Tobacco Use History Tobacco Use History - health physicist: Tobacco Use History - health physicist Tobacco Use Smoking Status Current every day smoker 09/16/24 12:49 Hx Tobacco Use Yes 09/16/24 12:49 Years Smoking Packs Smoked per Day 2 09/16/24 12:49 Smoking Cessation Date was within the last 15 years Hx Smoking Cessation Date Hx Smoking Cessation Counseling Any additional information?: Yes Smoking Status: Current every day smoker (Patient smoked today.) Hematologic Medial History Hematologic Hx - health physicist: Hematologic Medical Hx - machine compositor Hx of Blood Transfusion No 09/16/24 12:49 Hx of Transfusion in last 3 No 09/16/24 12:49 Months Date of Last Transfusion (if within last 3 months) Ever experience any problems No 09/16/24 12:49 with transfusion(s)? Specify any problems Hx of Preganancy in last 3 N/A 09/16/24 12:49 Months Nurse Filling Out Transfusion NBU[facility]ER 09/16/24 12:49 & Questions: Date: 09/16/24 09/16/24 12:49 Time: 12:50 09/16/24 12:49 Patient unable to answer at this time (ie. confused, unrespo /Reproduction History /Reproductive History - health physicist: /Reproductive Hx- health physicist Hx Now No 09/16/24 12:49 Gestational Age (in weeks): EDC: Hx Hx Para Hx Section SAB No 09/16/24 12:49 PFSH Medical History Wears glasses High cholesterol Difficulty swallowing Chronic cough Smoker History of echocardiogram History of stress test Cardiology follow-up encounter Blood glucose elevated Right shoulder pain GERD (gastroesophageal reflux disease) GI problem Diabetes Back problem Asthma Arthritis Seasonal allergies Alcohol abuse Essential hypertension Excessive daytime sleepiness Abnormal stress electrocardiogram test Hypertriglyceridemia Hyperlipidemia Chronic sinusitis Snoring Bilateral inguinal hernia Allergic rhinitis Chest pain Home Medications ?Medication ?Instructions ?Recorded ?Last Taken ?Type azelastine 137 mcg (0.1 %) nasal 1 spray intranasal BI D 06/24/24 Unknown History spray fluticasone furoate 50 1 inh inhalation Q24H Unknown History mcg/actuation blister powder for inhalation guaifenesin 600 mg tablet, 600 mg PO Q12H PRN congesti on 06/24/24 Unknown History extended release 12 hr (Mucinex) lansoprazole 30 mg capsule,delayed 30 mg PO .COMPLEX # 90 caps 07/09/24 Unknown Rx release empagliflozin 10 mg tablet 10 mg PO DAILY 09/16/24 Unk nown History (Jardiance) rosuvastatin 5 mg tablet 5 mg PO QHS 09/16/24 Unknown History Allergy/AdvReac Type Severity Reaction Status Date / Time No Known Allergies Allergy Verified 09/22/24 11:00 Family History Mother Alzheimers disease Daughter Autism ADHD Developmental disability Surgical History History of cardiac catheterization History of left heart catheterization (12/17/18) History of wisdom tooth extraction History of hernia repair History of appendectomy Social History household members: spouse housing: house current occupational status: unemployed Smoking Status: Current every day smoker alcohol intake: current alcohol intake frequency: a few times a week Alcohol type: beer substance use type: marijuana what type of physical activity do you participate in: walking frequency: daily seatbelt use: always do you feel safe at home: Yes Review of Systems (Anesthesia) ROS Narrative System reviewed and no additional complaints, except as documented.
[2024-09-22 11:35] LABS: Bedside Glucose 143 mg/dL (74-106)
--- NOTE | 2024-09-22 11:53 | PCM.HP.STD ---
HPI - General General Date of Admission: 09/22/24 Date of Service: 09/22/24 Chief Complaint: Screening colonoscopy HPI Narrative ALEXIS TEJADA, is a 59 M who presents for screening colonoscopy EGD February 2024 (Anthony) no endoscopic abnormality noted, 1cm HH, prophylactic dilation - esophageal biopsies unremarkable CXR 06/07/2024 unremarkable - did not like his last GI doctor there is nothing wrong with your stomach - regurgitates green mucus that is gritty - regurgitation of mucus and food - acid increases throughout the day - hot liquids and beer makes it thinner and easier to swallow - symptoms worsen with PPI and metformin - denies any weight loss - c/o night sweats which has been ongoing for a while - worse the past 10 months - reports for the past 10 months he has been coughing up mucus - originally this was a yellow mucus and now it is green - frequently waking in the middle of the night to spit up mucus - denies any swallowing or manometry testing - CXR - reports bowels alternate between constipation and diarrhea - 2-3 (24 ounce) beers a few days a week - smokes a pack a day - denies NSAIDS - coffee and tea daily - diabetic for the past 2 years - coughing is worse 3-4 hours after meals GES October 2023 Accelerated gastric emptying rate for the solid meal. [facility] Medical History Wears glasses High cholesterol Difficulty swallowing Chronic cough Smoker History of echocardiogram History of stress test Cardiology follow-up encounter Blood glucose elevated Right shoulder pain GERD (gastroesophageal reflux disease) GI problem Diabetes Back problem Asthma Arthritis Seasonal allergies Alcohol abuse Essential hypertension Excessive daytime sleepiness Abnormal stress electrocardiogram test Hypertriglyceridemia Hyperlipidemia Chronic sinusitis Snoring Bilateral inguinal hernia Allergic rhinitis Chest pain Home Medications ?Medication ?Instructions ?Recorded ?Last Taken ?Type azelastine 137 mcg (0.1 %) nasal 1 spray intranasal BID 06/24/24 Unknown History spray fluticasone furoate 50 1 inh inhalation Q24H 06/24/24 Unknown History mcg/actuation blister powder for inhalation guaifenesin 600 mg tablet, 600 mg PO Q12H PRN congestion 06/24/24 Unknown History extended release 12 hr (Mucinex) lansoprazole 30 mg capsule,delayed 30 mg PO .COMPLEX #90 caps 07/09/24 Unknown Rx release empagliflozin 10 mg tablet 10 mg PO DAILY 09/16/24 Unknown History (Jardiance) rosuvastatin 5 mg tablet 5 mg PO QHS 09/16/24 Unknown History Allergy/AdvReac Type Severity Reaction Status Date / Time No Known Allergies Allergy Verified 09/22/24 11:00 Family History Mother Alzheimers disease Daughter Autism ADHD Developmental disability Surgical History History of cardiac catheterization History of left heart catheterization (12/17/18) History of wisdom tooth extraction History of hernia repair History of appendectomy Social History household members: spouse housing: house current occupational status: unemployed Smoking Status: Current every day smoker (Patient smoked today.) alcohol intake: current alcohol intake frequency: a few times a week Alcohol type: beer substance use type: marijuana what type of physical activity do you participate in: walking frequency: daily seatbelt use: always do you feel safe at home: Yes ROS Constitutional Constitutional: Denies fatigue, fever(s), poor appetite, weight gain or weight loss Gastrointestinal Gastrointestinal: Denies belching, bloating, change in bowel habits, change in stool character, chewing difficulty, coffee ground emesis, constipation, cramping, diarrhea, dyspepsia, dysphagia, early satiety, excessive flatus, fecal incontinence, heartburn, hematemesis, hematochezia, hemorrhoids, loose stools, melena, nausea, odynophagia, rectal bleeding, tenesmus, vomiting or weight changes Vital Signs Vital Signs Vital Signs: 09/22/24 11:00 09/22/24 11:00 09/22/24 11:34 Temperature 98.1 F 98.1 F Temperature Source Temporal Pulse Rate 87 87 Respiratory Rate 16 16 Respiratory Pattern Normal Blood Pressure 138/100 H 138/100 H Blood Pressure Mean 112 Blood Pressure Source Monitor Blood Pressure Position Semi-Fowlers Blood Pressure Location Left Arm Pulse Ox 98 98 Oxygen Delivery Method Room Air Room Air Weight Weight: 218 lb 4.122 oz Body Mass Index (BMI) 28.0 Physical Exam Const alert, oriented x3, no apparent distress and healthy appearing General Appearance: cooperative GI normal to inspection, nondistended, normoactive bowel sounds, soft to palpation, non-tender and non-distended Percussion: normal to percussion Rectal Exam: deferred Results Lab / Micro Data Labs: Laboratory Results - last 24 hr 09/22/24 11:14: POC Glucose 143 H Assessment & Plan Assessment/Plan (1) Encounter for screening colonoscopy: PLAN: Assessment and Plan Assessment and Plan (1) Dysphagia: Qualifiers: Dysphagia type: esophageal phase Qualified Code(s): R13.19 - Other dysphagia (2) Encounter for screening colonoscopy: Status: Acute (3) Swallowing impairment: Status: Chronic (4) GERD (gastroesophageal reflux disease): Status: Chronic Qualifiers: Esophagitis presence: without esophagitis Qualified Code(s): K21.9 - Gastro-esophageal reflux disease without esophagitis Orders: Orders Esophageal Manometry 2 Weeks Colonoscopy 6 Weeks Medications: New lansoprazole 30 mg orally 30 minutes before breakfast; 90 caps 1RF Plan 59y/o male presents for consultation with complaints of regurgitation, dysphagia in the upper esophagus. and cough with previously negative EGD and CXR. GES completed October 2023 revealed rapid gastric emptying. Symptoms have been ongoing for the past 10 months. He reports excessive regurgitation of thick mucus which can be green at times. Waking frequently throughout the night with regurgitation. He reports an increase in symptoms with PPI and metformin. Symptoms improve with drinking hot liquids or beer. He smokes 1ppd. He denies any weight loss. I have started him on Lansoprazole 30mg daily and scheduled manometry and impedance testing. He is due for age related screening colonoscopy and will arrange this as well.
--- NOTE | 2024-09-22 12:00 | EGD_PTH ---
PATIENT: ALEXIS TEJADA LOC: EN U#:[id number] AGE/SX: 59/M ROOM: RE09/22/[address]: Dr. Fredrick Baird DO : 1965 BED: DIS: 09/22/2024 SPEC #: [id number] RECD: 09/22/24 13:34 STATUS: BRENDA MORALESDeidra #: [id number] ARGELIA: 09/22/24 12:[address]: Fredrick Baird DEPT: SURGICAL PATHOLOGY RECD BY: Delmis Grande ENTERED: 09/22/24 13:45 SP TYPE: EGD BIOPSY ORQUIDEA DR: Dr. Nathaniel Phillips MD Tissues: Esophagus, NOS Procedures: Surgery Specimen Level IV HEADER OPERATION: EGD with dilation and biopsies PRE-OP DIAGNOSIS: Dysphagia TISSUE SUBMITTED: Random esophagus biopsy MICROSCOPIC DIAGNOSIS Esophagus, biopsy: Fragments of benign squamous epithelium. See comment. VICKY. 09/23/2024 COMMENT Increased number of eosinophils consistent with eosinophilic esophagus are not seen. MICROSCOPIC DESCRIPTION Slides are reviewed. GROSS DESCRIPTION Received in fixative is one container labeled with the patient's name and designated Random esophagus biopsy. The specimen consists of multiple irregular fragments of light dior soft tissue that in aggregate measure 1.6 x 0.3 x 0.2 cm. The specimen is totally submitted in one cassette. 09/22/2024 TC:5 CPT:20414
--- NOTE | 2024-09-22 12:33 | PCM.POST.ANE ---
Anesthesia: Postop Eval I Current Vital Signs Temperature: 97.5 F Pulse Rate: 86 Blood Pressure: 105/81 Respiratory Rate: 16 Pulse Ox: 93 Oxygen Delivery Method: Room Air Assessment Airway patent: Yes Spontaneous unlabored respirations: Yes Mental status: Awake nausea: No Vomiting: No Anesthesia Complication: No Fluid Hydration Crystalloid volume administer (ml): 30 Total IV fluid infused: 30 Progress Note Anesthesia document: Postop Eval 1 completed: Yes
--- NOTE | 2024-09-22 12:36 | OP.CCLET_ITS ---
09/22/2024 Nathaniel Phillips MD [address] [place] [address] [place] [address] Re : Upper GI endoscopy procedure for Rc Ibarra Dear Dr. Phillips This procedure was performed on Sunday, September 22, 2024. My impressions and recommendations are as follows: Impressions : - Cricopharyngeal diverticulum - esophageal mucosal changes suggestive of eosinophilic esophagitis. Dilated. - Bilious gastric fluid. - No gross lesions in the second portion of the duodenum. - Biopsies were taken with a cold forceps for evaluation of eosinophilic esophagitis. Recommendations : - Discharge patient to home (ambulatory). - Resume previous diet. - Continue present medications. - Await pathology results. - Smoking significantly reduces the amount of saliva produced, leading to a dry mouth (xerostomia) by damaging the salivary glands and impacting the quality of saliva, making it thicker and stickier compared to non-smokers - Thickened saliva: Smoking can alter the composition of saliva, making it thicker and more viscous due to the impact on the parotid glands which produce watery saliva. It can also lead to increased acid and bile production as seen in his stomach. My findings are described in the full procedure note, which is enclosed. If I can be of further assistance, please feel free to contact me at . Sincerely, Fredrick Friend, 09/22/2024 12:35:53 PM This report has been signed electronically.
--- NOTE | 2024-09-22 12:36 | OP.EGD_ITS ---
Patient Name: Rc Ibarra Procedure Date: 09/22/2024 12:04 PM Date of : 1965 Age: 59 Procedure: Upper GI endoscopy Indications: Dysphagia, Odynophagia Providers: Fredrick Baird DO Referring MD: Nathaniel Phillips MD Medicines: Monitored Anesthesia Care Patient Profile: This is a 59 year old male. Refer to note in patient chart for documentation of history and physical. Complications: No immediate complications. Procedure: Pre-Anesthesia Assessment: - Prior to the procedure, a History and Physical was performed, and patient medications and allergies were reviewed. The patient is competent. The risks and benefits of the procedure and the sedation options and risks were discussed with the patient. All questions were answered and informed consent was obtained. Patient identification and proposed procedure were verified by the physician in the pre-procedure area. Mental Status Examination: alert and oriented. Airway Examination: normal oropharyngeal airway and neck mobility. Respiratory Examination: clear to auscultation. CV Examination: normal. Prophylactic Antibiotics: The patient does not require prophylactic antibiotics. Prior Anticoagulants: The patient has taken no anticoagulant or antiplatelet agents. ASA Grade Assessment: III - A patient with severe systemic disease. After reviewing the risks and benefits, the patient was deemed in satisfactory condition to undergo the procedure. The anesthesia plan was to use monitored anesthesia care (MAC). Immediately prior to administration of medications, the patient was re-assessed for adequacy to receive sedatives. The heart rate, respiratory rate, oxygen saturations, blood pressure, adequacy of pulmonary ventilation, and response to care were monitored throughout the procedure. The physical status of the patient was re-assessed after the procedure. After obtaining informed consent, the endoscope was passed under direct vision. Throughout the procedure, the patient's blood pressure, pulse, and oxygen saturations were monitored continuously. The Endoscope was introduced through the mouth, and advanced to the second part of duodenum. The upper GI endoscopy was accomplished without difficulty. The patient tolerated the procedure well. 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 Biopsies were obtained from the proximal and distal esophagus with cold forceps for histology of suspected eosinophilic esophagitis. A guidewire was placed and the scope was withdrawn. Dilation was performed with a Savary dilator with no resistance at 54 Fr. The dilation site was examined and showed moderate improvement in luminal narrowing. Estimated blood loss was minimal. Bilious fluid was found in the entire examined stomach. No gross lesions were noted in the second portion of the duodenum. Impression: - Cricopharyngeal diverticulum - esophageal mucosal changes suggestive of eosinophilic esophagitis. Dilated. - Bilious gastric fluid. - No gross lesions in the second portion of the duodenum. - Biopsies were taken with a cold forceps for evaluation of eosinophilic esophagitis. Recommendation: - Discharge patient to home (ambulatory). - Resume previous diet. - Continue present medications. - Await pathology results. - Smoking significantly reduces the amount of saliva produced, leading to a dry mouth (xerostomia) by damaging the salivary glands and impacting the quality of saliva, making it thicker and stickier compared to non-smokers - Thickened saliva: Smoking can alter the composition of saliva, making it thicker and more viscous due to the impact on the parotid glands which produce watery saliva. It can also lead to increased acid and bile production as seen in his stomach. Procedure Code(s): --- Professional --- 44351, Esophagogastroduodenoscopy, flexible, transoral; with insertion of guide wire followed by passage of dilator(s) through esophagus over guide wire 95838, 59,51, Esophagogastroduodenoscopy, flexible, transoral; with biopsy, single or multiple CPT copyright 2021 [employer]. All rights reserved. The codes documented in this report are preliminary and upon dock associate review may be revised to meet current compliance requirements. Fredrick Baird DO 09/22/2024 12:35:53 PM This report has been signed electronically. Number of Addenda: 0 Note Initiated On: 09/22/2024 12:04 PM
--- NOTE | 2024-09-22 18:41 | PCM.POSTANE2 ---
Anesthesia Postop Eval I Sum Postop Eval Completion status Anesthesia document: Postop Eval 1 completed: Yes Anesthesia Postop Eval I Summary Anesthesia Postop Eval I Summary: Anesthesia Postop Eval I: Assessment Summary Airway patent Yes 09/22/24 12:34 [email or web address] Spontaneous unlabored Yes 09/22/24 12:34 [email or web address] respirations Mental status Awake 09/22/24 12:34 [email or web address] nausea No 09/22/24 12:34 [email or web address] Vomiting No 09/22/24 12:34 [email or web address] Anesthesia Postop Eval I: Fluid Summary Crystalloid volume administer 30 09/22/24 12:34 [email or web address] (ml) Colloids volume administered ( ml) Blood Product volume administered (ml) Total IV fluid infused 30 09/22/24 12:34 [email or web address] Anesthesia Postop Eval I: Summary Notes Anesthesia Complication No 09/22/24 12:34 [email or web address] Anesthesia Complication Comment: Post-operative progress note Anesthesia: Postop Eval II Evaluation Mental status: Awake and Calm Pain Level: 0 nausea: No Vomiting: No Complications Anesthesia Complication: No
== END 2024-09-22 13:02 | disposition home or self-care (01) ==
LOC: EN 10:41 → AC 10:42
PROVIDERS: PCP Internal Medicine; Referring Provider Internal Medicine; Visit Provider Internal Medicine Gastroenterology
PROC: 0DJ08ZZ Inspection of Upper Intestinal Tract, Via Natural or Artificial Opening Endoscopic (ICD-10-PCS; CPT 43235; principal; 2024-09-22 11:55)
DX: R13.19 Other dysphagia (principal); E11.9 Type 2 diabetes mellitus without complications; K21.9 Gastro-esophageal reflux disease without esophagitis; E78.00 Pure hypercholesterolemia, unspecified; F17.200 Nicotine dependence, unspecified, uncomplicated; Z79.84 Long term (current) use of oral hypoglycemic drugs; I10 Essential (primary) hypertension; K11.7 Disturbances of salivary secretion; J45.909 Unspecified asthma, uncomplicated; Z79.899 Other long term (current) drug therapy
CPT/HCPCS: 43248; 43239; 82962; 88305; A4216; C1769; J2405

== ENCOUNTER → 2024-11-05 | Outpatient (CLI) | payer MEDICAID, SELFPAY ==
--- NOTE | 2024-11-05 15:55 | CT_ITS ---
PROCEDURE: SOFT TISSUE NECK WITH CONTRAST 11/05/2024 REASON FOR EXAM: DYSPHAGIA TECHNIQUE: CT of the soft tissues of the neck from the orbits to the upper mediastinum with intravenous contrast. CONTRAST: Omnipaque 350 VOLUME: 100 mL Not Provided Gauge IV One or more dose reduction techniques were used (e.g., Automated exposure control, adjustment of the mA and/or kV according to patient size, use of iterative reconstruction technique). COMPARISON: None FINDINGS: Lymph nodes: No cervical lymphadenopathy by size, number or morphologic criteria. Small nonspecific lymph nodes are scattered throughout the neck. Aerodigestive tract: The oral cavity is partially obscured by artifact from dental amalgam. The nasal cavities, naso-oropharynx, pharyngeal mucosal space, laryngeal structures and infraglottic trachea are within normal limits. Major salivary glands: Within normal limits. Thyroid gland: Within normal limits. Carotid space: Patent bilateral extracranial carotid and jugular systems. Intracranial contents: Imaged portions within normal limits. Paranasal sinuses, middle ears, mastoids: Mild paranasal sinus mucosal thickening.. Orbits: Within normal limits. Bones: No suspicious osseous lesions in the imaged calvarium, skull base and spine. Normal cervicothoracic alignment. No significant spondylotic changes. Temporomandibular joints are maintained. Lungs: Centrilobular emphysema within the imaged lung apices. CT/Soft Tissue Neck WITH Contrast IMPRESSION: No suspicious cervical mass or adenopathy. [facility]
== END | disposition home or self-care (01) ==
PROVIDERS: PCP Internal Medicine; Referring Provider Physician Assistant; Visit Provider Physician Assistant
DX: R13.10 Dysphagia, unspecified (principal)
CPT/HCPCS: 70491; Q9967